=== PATIENT | male | born 1945 | race Caucasian/White ===

== ENCOUNTER 2017-11-26 11:45 | Emergency (ER) | payer OTHER | END 2017-11-26 12:43 | disposition home or self-care (01) | LOC: FTE 11:45 → E/R 12:43 | DX: L02.212 Cutaneous abscess of back [any part, except buttock and flank] (principal); I10 Essential (primary) hypertension; E11.9 Type 2 diabetes mellitus without complications; Z87.891 Personal history of nicotine dependence | CPT/HCPCS: 99283 ==

== ENCOUNTER 2018-02-07 21:12 | Inpatient (IN) | payer OTHER, BC, MEDICAID ==
[2018-02-07] MEDS: KETOROLAC 15 MG INJ IV (23:14)
[2018-02-07] MEDS: NA PHOSPHATE/BIPHOS 133 ML ENEMA PR (23:42)
[2018-02-07 23:54] LABS: ADD MAN DIFF? NO
[2018-02-07 23:56] LABS: BASOPHILS % 0.2 % (0.0-2.0); EOSINOPHILS % 0.1 % (0.0-7.0); HEMOGLOBIN 13.8 g/dl (14.0-18.0); LYMPHOCYTES # 1.5 10^3/ul (0.8-2.9); LYMPHOCYTES % 10.5 % (15.0-51.0); MEAN CORPUSCULAR HEMOGLOBIN 27.3 pg (29.0-33.0); MEAN CORPUSCULAR HGB CONC 33.7 g/dl (32.0-37.0); MEAN CORPUSCULAR VOLUME 81.2 fl (82.0-101.0); MEAN PLATELET VOLUME 11.5 fl (7.4-10.4); MONOCYTE # 1.2 10^3/ul (0.3-0.9); MONOCYTES % 8.4 % (0.0-11.0); NEUTROPHIL # 11.8 10^3/ul (1.6-7.5); NEUTROPHILS % 80.3 % (39.0-77.0); PLATELET COUNT 254 10^3/UL (140-415); RED BLOOD COUNT 5.05 10^6/ul (4.70-6.10); RED CELL DISTRIBUTION WIDTH 13.6 % (11.5-14.5)
[2018-02-07 23:56] LABS: WHITE BLOOD COUNT 14.7 10^3/ul (4.8-10.8)
[2018-02-08 00:18] LABS: ALANINE AMINOTRANSFERASE 28 IU/L (13-69); ALBUMIN 3.9 g/dl (3.3-4.9); ALBUMIN/GLOBULIN RATIO 0.97; ALKALINE PHOSPHATASE 96 IU/L (42-121); ANION GAP 13 (8-16); ASPARTATE AMINO TRANSFERASE 22 IU/L (15-46); BILIRUBIN,INDIRECT 0.5 mg/dl (0-1.1); BILIRUBIN,TOTAL 0.5 mg/dl (0.2-1.3); BLOOD UREA NITROGEN 11 mg/dl (7-20); CALCIUM 9.7 mg/dl (8.4-10.2); CARBON DIOXIDE 30 mmol/L (21-31); CHLORIDE 99 mmol/L (97-110); CREATININE 1.42 mg/dl (0.61-1.24); GLUCOSE 142 mg/dl (70-220); POTASSIUM 3.2 mmol/L (3.5-5.1); SODIUM 139 mmol/L (135-144); TOTAL PROTEIN 7.9 g/dl (6.1-8.1)
[2018-02-08 00:27] LABS: PROTIME 16.4 Sec (11.9-14.9); PT RATIO 1.3
[2018-02-08 00:28] LABS: PARTIAL THROMBOPLASTIN TIME 34.3 Sec (25.0-35.0)
[2018-02-08 00:35] LABS: LIPASE 64 U/L (23-300)
[2018-02-08] MEDS: metroNIDAZOLE 500 MG/NS (PMX) 100 ML IVPB (00:44)
[2018-02-08] MEDS: CIPROFLOXACIN 400MG/D5W 200 ML IVPB (01:34)
[2018-02-08 01:37] LABS: URINE BLOOD (Dip) POC 2+ (NEGATIVE); URINE KETONES (Dip) POC Negative (NEGATIVE); URINE LEUKOCYTE EST (Dip) POC Negative (NEGATIVE); URINE NITRITE (Dip) POC Negative (NEGATIVE); URINE TOTAL PROTEIN POC 2+ (NEGATIVE)
[2018-02-08] MEDS: POTASSIUM CHLORIDE 100 ML IVPB ×2 (02:00→04:21)
[2018-02-08] MEDS ORDERED: ACETAMINOPHEN 325 MG TAB PO (06:30)
[2018-02-08] MEDS: SOD CHLORIDE 0.9% 1,000 ML IV ×2 (07:06→15:32)
[2018-02-08] MEDS: FUROSEMIDE 20 MG INJ IV (07:08)
[2018-02-08] MEDS ORDERED: INSULIN ASPART [NOVOLOG] 3 ML PEN SC (09:00)
[2018-02-08] MEDS: SENNA TAB PO ×2 (09:17→20:42)
[2018-02-08] MEDS: TAMSULOSIN (SR) 0.4 MG CAP PO ×2 (09:17→20:41)
[2018-02-08] MEDS: metroNIDAZOLE 500 MG TAB PO ×3 (09:18→20:40)
[2018-02-08] MEDS: POTASSIUM CHLORIDE (SR) 20 MEQ TAB PO ×2 (09:19→13:51)
[2018-02-08] MEDS: LISINOPRIL 10 MG TAB PO (09:19)
[2018-02-08] MEDS: LEVETIRACETAM 500 MG TAB PO ×2 (09:20→20:42)
[2018-02-08] MEDS ORDERED: GLUCOSE GEL 15 GRAM TUBE BUCCAL (09:30)
[2018-02-08] MEDS ORDERED: GLUCAGON 1 MG INJ IM (09:30)
[2018-02-08] MEDS ORDERED: DEXTROSE 50% 50 ML SYRINGE IV ×2 (09:30)
[2018-02-08] MEDS ORDERED: GLUCOSE GEL 15 GRAM TUBE PO ×2 (09:30)
[2018-02-08] MEDS ORDERED: SENNA TAB PO (11:00)
[2018-02-08] MEDS: INSULIN ASPART [NOVOLOG] 3 ML PEN SC ×3 (11:10→20:33)
[2018-02-08] MEDS: POLYETHYLENE GLYCOL 17 GM PACKET PO ×2 (11:20→20:49)
[2018-02-08] MEDS: DOCUSATE SODIUM 100 MG CAP PO ×2 (11:20→20:39)
[2018-02-08] MEDS: LEVOFLOXACIN 500MG/D5W (PMX) 100 ML IVPB (11:22)
[2018-02-08] MEDS: ENOXAPARIN 100 MG/ML SYG SC ×2 (11:22→20:49)
[2018-02-08] MEDS ORDERED: LEVOFLOXACIN 500MG/D5W (PMX) 100 ML IVPB (12:00)
[2018-02-08] MEDS: morphine 2 MG INJ IV (20:29)
[2018-02-08] MEDS: ATORVASTATIN 40 MG TAB PO (20:42)
[2018-02-09] MEDS: SOD CHLORIDE 0.9% 1,000 ML IV ×2 (01:15→12:47)
[2018-02-09] MEDS: ACCU-CHEK XX (01:19)
[2018-02-09 05:26] LABS: ADD MAN DIFF? NO
[2018-02-09 05:35] LABS: WHITE BLOOD COUNT 11.2 10^3/ul (4.8-10.8)
[2018-02-09 05:35] LABS: BASOPHILS % 0.4 % (0.0-2.0); EOSINOPHILS # 0.1 10^3/ul (0.0-0.5); EOSINOPHILS % 0.6 % (0.0-7.0); HEMATOCRIT 33.5 % (42.0-52.0); HEMOGLOBIN 11.1 g/dl (14.0-18.0); LYMPHOCYTES # 2.6 10^3/ul (0.8-2.9); LYMPHOCYTES % 23.2 % (15.0-51.0); MEAN CORPUSCULAR HEMOGLOBIN 27.5 pg (29.0-33.0); MEAN CORPUSCULAR HGB CONC 33.1 g/dl (32.0-37.0); MEAN CORPUSCULAR VOLUME 83.1 fl (82.0-101.0); MEAN PLATELET VOLUME 10.8 fl (7.4-10.4); MONOCYTE # 1.2 10^3/ul (0.3-0.9); MONOCYTES % 10.5 % (0.0-11.0); NEUTROPHIL # 7.2 10^3/ul (1.6-7.5); NEUTROPHILS % 64.6 % (39.0-77.0); PLATELET COUNT 210 10^3/UL (140-415); RED BLOOD COUNT 4.03 10^6/ul (4.70-6.10); RED CELL DISTRIBUTION WIDTH 13.7 % (11.5-14.5)
[2018-02-09 05:55] LABS: ANION GAP 12 (8-16); BLOOD UREA NITROGEN 18 mg/dl (7-20); CALCIUM 8.5 mg/dl (8.4-10.2); CARBON DIOXIDE 25 mmol/L (21-31); CHLORIDE 103 mmol/L (97-110); CREATININE 1.56 mg/dl (0.61-1.24); GLUCOSE 88 mg/dl (70-220); POTASSIUM 4.3 mmol/L (3.5-5.1); SODIUM 136 mmol/L (135-144)
[2018-02-09] MEDS: morphine 2 MG INJ IV (06:04)
[2018-02-09] MEDS: INSULIN ASPART [NOVOLOG] 3 ML PEN SC ×4 (07:20→21:00)
[2018-02-09] MEDS: SENNA TAB PO ×2 (08:24→21:17)
[2018-02-09] MEDS: LEVETIRACETAM 500 MG TAB PO ×2 (08:24→21:17)
[2018-02-09] MEDS: metroNIDAZOLE 500 MG TAB PO ×3 (08:24→21:16)
[2018-02-09] MEDS: POLYETHYLENE GLYCOL 17 GM PACKET PO ×2 (08:25→21:17)
[2018-02-09] MEDS: DOCUSATE SODIUM 100 MG CAP PO ×2 (08:25→21:16)
[2018-02-09] MEDS: TAMSULOSIN (SR) 0.4 MG CAP PO ×2 (08:25→21:16)
[2018-02-09] MEDS: ENOXAPARIN 100 MG/ML SYG SC ×2 (08:27→21:18)
[2018-02-09] MEDS: LISINOPRIL 10 MG TAB PO (08:29)
[2018-02-09] MEDS: BISACODYL (EC) 5 MG TAB PO ×2 (09:41→17:04)
[2018-02-09] MEDS: POLYETHYLENE GLYCOL 3350 119 GM POWDER PO ×2 (09:41→17:07)
[2018-02-09] MEDS: LEVOFLOXACIN 500MG/D5W (PMX) 100 ML IVPB (12:10)
[2018-02-09] MEDS: MAGNESIUM CITRATE 300 ML BTL PO ×2 (13:31→20:00)
[2018-02-09] MEDS: ATORVASTATIN 40 MG TAB PO (21:17)
[2018-02-10] MEDS: morphine LIQ (10 MG/5 ML) CUP PO ×2 (00:17→04:43)
[2018-02-10] MEDS: ACCU-CHEK XX (01:11)
[2018-02-10] MEDS: SOD CHLORIDE 0.9% 1,000 ML IV ×2 (01:16→15:04)
[2018-02-10 05:55] LABS: ADD MAN DIFF? NO
[2018-02-10 05:59] LABS: WHITE BLOOD COUNT 8.7 10^3/ul (4.8-10.8)
[2018-02-10 05:59] LABS: BASOPHILS % 0.2 % (0.0-2.0); EOSINOPHILS # 0.2 10^3/ul (0.0-0.5); HEMATOCRIT 35.4 % (42.0-52.0); HEMOGLOBIN 11.6 g/dl (14.0-18.0); LYMPHOCYTES # 2.1 10^3/ul (0.8-2.9); LYMPHOCYTES % 23.9 % (15.0-51.0); MEAN CORPUSCULAR HEMOGLOBIN 27.4 pg (29.0-33.0); MEAN CORPUSCULAR HGB CONC 32.8 g/dl (32.0-37.0); MEAN CORPUSCULAR VOLUME 83.5 fl (82.0-101.0); MEAN PLATELET VOLUME 10.9 fl (7.4-10.4); MONOCYTE # 0.7 10^3/ul (0.3-0.9); NEUTROPHIL # 5.7 10^3/ul (1.6-7.5); NEUTROPHILS % 65.4 % (39.0-77.0); PLATELET COUNT 230 10^3/UL (140-415); RED BLOOD COUNT 4.24 10^6/ul (4.70-6.10); RED CELL DISTRIBUTION WIDTH 13.2 % (11.5-14.5)
[2018-02-10 06:17] LABS: ANION GAP 12 (8-16); BLOOD UREA NITROGEN 17 mg/dl (7-20); CALCIUM 8.7 mg/dl (8.4-10.2); CARBON DIOXIDE 26 mmol/L (21-31); CHLORIDE 102 mmol/L (97-110); CREATININE 1.51 mg/dl (0.61-1.24); GLUCOSE 88 mg/dl (70-220); POTASSIUM 3.8 mmol/L (3.5-5.1); SODIUM 136 mmol/L (135-144)
[2018-02-10] MEDS: INSULIN ASPART [NOVOLOG] 3 ML PEN SC ×4 (07:20→20:58)
[2018-02-10] MEDS ORDERED: LABETALOL HCL 20MG INJ IV (08:00)
[2018-02-10] MEDS: SENNA TAB PO ×2 (09:07→20:58)
[2018-02-10] MEDS: AMLODIPINE 5 MG TAB PO (09:07)
[2018-02-10] MEDS: BISACODYL (EC) 5 MG TAB PO ×2 (09:07→18:26)
[2018-02-10] MEDS: LEVETIRACETAM 500 MG TAB PO ×2 (09:07→20:57)
[2018-02-10] MEDS: TAMSULOSIN (SR) 0.4 MG CAP PO ×2 (09:07→20:57)
[2018-02-10] MEDS: DOCUSATE SODIUM 100 MG CAP PO ×2 (09:07→20:57)
[2018-02-10] MEDS: metroNIDAZOLE 500 MG TAB PO ×3 (09:07→20:57)
[2018-02-10] MEDS: ENOXAPARIN 100 MG/ML SYG SC ×2 (09:08→21:00)
[2018-02-10] MEDS: POLYETHYLENE GLYCOL 17 GM PACKET PO ×2 (09:09→20:58)
[2018-02-10] MEDS: MAGNESIUM CITRATE 300 ML BTL PO ×2 (10:00→15:04)
[2018-02-10] MEDS: LEVOFLOXACIN 500MG/D5W (PMX) 100 ML IVPB (12:24)
[2018-02-10] MEDS: POLYETHYLENE GLYCOL 3350 119 GM POWDER PO ×2 (12:25→18:27)
[2018-02-10] MEDS: ONDANSETRON 4 MG INJ IV (16:18)
[2018-02-10] MEDS: ATORVASTATIN 40 MG TAB PO (20:57)
[2018-02-11] MEDS: ACCU-CHEK XX (02:00)
[2018-02-11] MEDS: SOD CHLORIDE 0.9% 1,000 ML IV ×2 (03:37→17:38)
[2018-02-11 06:26] LABS: ANION GAP 13 (8-16); BLOOD UREA NITROGEN 17 mg/dl (7-20); CALCIUM 8.7 mg/dl (8.4-10.2); CARBON DIOXIDE 26 mmol/L (21-31); CHLORIDE 103 mmol/L (97-110); CREATININE 1.36 mg/dl (0.61-1.24); GLUCOSE 85 mg/dl (70-220); POTASSIUM 3.8 mmol/L (3.5-5.1); SODIUM 138 mmol/L (135-144)
[2018-02-11] MEDS: INSULIN ASPART [NOVOLOG] 3 ML PEN SC ×4 (07:20→21:00)
[2018-02-11] MEDS: ENOXAPARIN 100 MG/ML SYG SC ×2 (09:00→20:52)
[2018-02-11] MEDS: DOCUSATE SODIUM 100 MG CAP PO ×2 (09:52→20:48)
[2018-02-11] MEDS: metroNIDAZOLE 500 MG TAB PO ×3 (09:52→20:48)
[2018-02-11] MEDS: AMLODIPINE 5 MG TAB PO (09:53)
[2018-02-11] MEDS: TAMSULOSIN (SR) 0.4 MG CAP PO ×2 (09:53→20:48)
[2018-02-11] MEDS: SENNA TAB PO ×2 (09:53→20:48)
[2018-02-11] MEDS: LEVETIRACETAM 500 MG TAB PO ×2 (09:53→20:48)
[2018-02-11] MEDS: POLYETHYLENE GLYCOL 17 GM PACKET PO ×2 (09:53→20:48)
[2018-02-11] MEDS: LEVOFLOXACIN 500MG/D5W (PMX) 100 ML IVPB (11:37)
[2018-02-11] MEDS ORDERED: hydrALAzine 20 MG INJ IV ×2 (12:00→18:30)
[2018-02-11] MEDS ORDERED: PROPOFOL 40 ML (17:41)
[2018-02-11] MEDS ORDERED: ALBUTEROL 0.083% (NEB) 2.5 MG/3 ML AMP HHN (18:30)
[2018-02-11] MEDS ORDERED: ONDANSETRON 4 MG INJ IV (18:30)
[2018-02-11] MEDS ORDERED: DIPHENHYDRAMINE 50 MG INJ IV (18:30)
[2018-02-11] MEDS ORDERED: FENTAnyl 50 MCG/ML VIAL IV ×2 (18:30)
[2018-02-11] MEDS ORDERED: MEPERIDINE 25 MG INJ IV (18:30)
[2018-02-11] MEDS ORDERED: OXYCODONE/ACETAMINOPHEN (5/325) TAB PO (18:30)
[2018-02-11] MEDS ORDERED: LABETALOL HCL 20MG INJ IV (18:30)
[2018-02-11] MEDS ORDERED: EPHEDrine SULFATE 50 MG/5 ML SYG IV (18:30)
[2018-02-11] MEDS: ATORVASTATIN 40 MG TAB PO (20:48)
[2018-02-11] MEDS: FAMOTIDINE 20 MG TAB PO (20:48)
[2018-02-12] MEDS: SOD CHLORIDE 0.9% 1,000 ML IV ×2 (00:01→13:31)
[2018-02-12] MEDS: ACCU-CHEK XX (02:00)
[2018-02-12] MEDS: AMLODIPINE 5 MG TAB PO (06:18)
[2018-02-12] MEDS: INSULIN ASPART [NOVOLOG] 3 ML PEN SC ×3 (07:20→17:25)
[2018-02-12] MEDS: TRIMETHOPRIM/SULFAMETHOX (DS) TAB PO (08:49)
[2018-02-12] MEDS: TAMSULOSIN (SR) 0.4 MG CAP PO (08:49)
[2018-02-12] MEDS: DOCUSATE SODIUM 100 MG CAP PO (08:49)
[2018-02-12] MEDS: SENNA TAB PO (08:49)
[2018-02-12] MEDS: metroNIDAZOLE 500 MG TAB PO ×2 (08:50→12:55)
[2018-02-12] MEDS: LEVETIRACETAM 500 MG TAB PO (08:51)
[2018-02-12] MEDS: POLYETHYLENE GLYCOL 17 GM PACKET PO (08:51)
[2018-02-12] MEDS: ENOXAPARIN 100 MG/ML SYG SC (08:54)
[2018-02-12 10:40] LABS: ADD MAN DIFF? NO
[2018-02-12 10:43] LABS: BASOPHILS % 0.4 % (0.0-2.0); EOSINOPHILS # 0.2 10^3/ul (0.0-0.5); HEMATOCRIT 37.5 % (42.0-52.0); HEMOGLOBIN 12.6 g/dl (14.0-18.0); LYMPHOCYTES % 25.9 % (15.0-51.0); MEAN CORPUSCULAR HEMOGLOBIN 27.4 pg (29.0-33.0); MEAN CORPUSCULAR HGB CONC 33.6 g/dl (32.0-37.0); MEAN CORPUSCULAR VOLUME 81.5 fl (82.0-101.0); MEAN PLATELET VOLUME 9.9 fl (7.4-10.4); MONOCYTE # 0.6 10^3/ul (0.3-0.9); NEUTROPHIL # 4.8 10^3/ul (1.6-7.5); PLATELET COUNT 280 10^3/UL (140-415); RED CELL DISTRIBUTION WIDTH 12.9 % (11.5-14.5)
[2018-02-12 10:43] LABS: WHITE BLOOD COUNT 7.7 10^3/ul (4.8-10.8)
[2018-02-12 11:00] LABS: ANION GAP 11 (8-16); BLOOD UREA NITROGEN 15 mg/dl (7-20); CARBON DIOXIDE 29 mmol/L (21-31); CHLORIDE 102 mmol/L (97-110); CREATININE 1.33 mg/dl (0.61-1.24); GLUCOSE 106 mg/dl (70-220); POTASSIUM 3.9 mmol/L (3.5-5.1); SODIUM 138 mmol/L (135-144)
[2018-02-12 11:49] LABS: PHOSPHORUS 3.3 mg/dl (2.5-4.9)
[2018-02-12] MEDS ORDERED: APIXABAN 5 MG TABLET PO (21:00)
== END 2018-02-12 20:00 | DRG 694 ==
LOC: MS1 02-08 01:41 → E/R 21:12
PROC: 0DBK8ZZ Excision of Ascending Colon, Via Natural or Artificial Opening Endoscopic (ICD-10-PCS; principal; 2018-02-11 17:02)
PROC: 0DBL8ZZ Excision of Transverse Colon, Via Natural or Artificial Opening Endoscopic (ICD-10-PCS; 2018-02-11 17:02)
PROC: 0DBM8ZZ Excision of Descending Colon, Via Natural or Artificial Opening Endoscopic (ICD-10-PCS; 2018-02-11 17:02)
PROC: 0DBN8ZX Excision of Sigmoid Colon, Via Natural or Artificial Opening Endoscopic, Diagnostic (ICD-10-PCS; 2018-02-11 17:02)
DX: N13.2 Hydronephrosis with renal and ureteral calculous obstruction (principal); I69.954 Hemiplegia and hemiparesis following unspecified cerebrovascular disease affecting left non-dominant side; K51.30 Ulcerative (chronic) rectosigmoiditis without complications; N17.9 Acute kidney failure, unspecified; Z79.84 Long term (current) use of oral hypoglycemic drugs; E04.1 Nontoxic single thyroid nodule; K63.5 Polyp of colon; D49.7 Neoplasm of unspecified behavior of endocrine glands and other parts of nervous system; N39.0 Urinary tract infection, site not specified; G40.909 Epilepsy, unspecified, not intractable, without status epilepticus; E11.9 Type 2 diabetes mellitus without complications; E78.5 Hyperlipidemia, unspecified; I10 Essential (primary) hypertension; E87.6 Hypokalemia; D64.9 Anemia, unspecified; K59.00 Constipation, unspecified; Z79.01 Long term (current) use of anticoagulants; Z86.718 Personal history of other venous thrombosis and embolism; Z86.711 Personal history of pulmonary embolism; Z87.891 Personal history of nicotine dependence
CPT/HCPCS: 36415; 74018; 74176; 80048; 80053; 81003; 82962; 83690; 83735; 84100; 85025; 85610; 85730; 87086; 88305; 96374; 96375; 99285-25